=== PATIENT | male | born 1965 | race Two or more races ===

== ENCOUNTER 2022-12-03 14:40 | Emergency (ER) | payer OTHER ==
[~2022-12-03] VITALS: Ht 180.3 cm; Wt 84.5 kg
[2022-12-03 15:25] VITALS: BP 126/89; PULSE 90; RESP 18; O2SAT 97
[2022-12-03] MEDS ORDERED: NEOMYCIN-BACITRACIN-POLYM UNITDOSE PKG TOP OINT TOP ONE (15:30)
[2022-12-03 17:10] LABS: Basophils # (auto) 0.1 10 ^3/uL (0-0.2); Basophils % (auto) 0.9 % (0.0-2.0); Eosinophils # (auto) 0.1 10 ^3/uL (0-0.8); Eosinophils % (auto) 1.2 % (0.0-7.0); Hematocrit 38.1 % (41.0-53.0); Hemoglobin 12.8 g/dL (13.5-17.5); Lymphocytes # (auto) 2.2 10 ^3/uL (0.4-5.4); Lymphocytes % (auto) 20.8 % (10.0-50.0); Mean Corpuscular Hemoglobin 30.6 pg (28.0-32.0); Mean Corpuscular Hgb Conc. 33.5 g/dL (32.0-36.0); Mean Corpuscular Volume 91.2 fL (80.0-100.0); Monocytes # (auto) 0.7 10 ^3/uL (0-1.3); Monocytes % (auto) 6.7 % (0.0-12.0); Neutrophils # (auto) 7.6 10 ^3/uL (1.6-8.6); Neutrophils % (auto) 70.4 % (37.0-80.0); Red Blood Cells 4.18 10^6/uL (4.5-5.90); Red Cell Distribution Width 13.8 % (11.8-14.3); White Blood Cell 10.8 10^3/uL (4.4-10.8)
[2022-12-03 17:23] LABS: Alanine Aminotransferase 12 U/L (7-40); Albumin 4.3 g/dL (3.2-4.8); Alkaline Phosphatase 66 U/L (46-116); Anion Gap 7 (5-15); Aspartate Aminotransferase 12 U/L (13-40); Bilirubin, Total 0.3 mg/dL (0.2-1.0); Blood Urea Nitrogen 8 mg/dL (9-23); Calcium 8.7 mg/dL (8.7-10.4); Carbon Dioxide 24 mmol/L (20-30); Chloride 107 mmol/L (98-107); Glucose 98 mg/dL (74-106); Potassium 3.7 mmol/L (3.5-5.1); Sodium 138 mmol/L (136-145); Total Protein 7.9 g/dL (5.7-8.2)
[2022-12-03] MEDS ORDERED: [UNRECOGNIZED DRUG - CODE] EX (18:24)
[2022-12-03] MEDS ORDERED: ACET500T58 PO (18:24)
[2022-12-03] MEDS ORDERED: IBUP-1455 PO (18:24)
[2022-12-03] MEDS ORDERED: CEPH250C PO (18:24)
== END 2022-12-03 22:20 | disposition left against medical advice (07) ==
LOC: ER 14:40
DX: E11.621 Type 2 diabetes mellitus with foot ulcer (principal); L97.518 Non-pressure chronic ulcer of other part of right foot with other specified severity; I10 Essential (primary) hypertension
CPT/HCPCS: 36415; 73610; 80053; 83605; 85025; 87205